=== PATIENT | male | born 1965 | race Caucasian/White ===

== ENCOUNTER 2016-08-23 10:19 | Emergency (ER) | payer BC ==
[2016-08-23] MEDS ORDERED: ASPIRIN (CHEWABLE) 81 MG TAB PO ONE (10:26)
[2016-08-23 10:47] VITALS: TEMP 97
--- NOTE | 2016-08-23 10:53 | RAD ---
EXAM DESCRIPTION: XR CHEST 2 VIEWS CLINICAL HISTORY: Chest pain COMPARISON: None TECHNIQUE: PA/lateral FINDINGS: Heart size is normal. The lungs are clear. No acute bony abnormality. IMPRESSION: No acute cardiopulmonary process. Electronically signed by: Srinivas Lacey MD 08/23/2016 10:52 AM CDT
--- NOTE | 2016-08-23 11:41 | ED.PDOC ---
History of Present Illness - General Chief Complaint: Chest Pain/VT Time Seen by Provider: 08/23/16 10:22 Source: patient Exam Limitations: no limitations - History of Present Illness Initial Comments: Patient presents with chest tightness for two hours. Sudden onset while driving to work this morning. Non-radiating. Intermittent. Had a previous episode about 6 months ago. No associated symptoms. Denies tobacco use. No hx of DM. No hx of first degree relatives with AMI but his mother had atrial fibrillation. Denies hyperlipidemia. Says he drinks at least two beers per day and had more than that this past weekend. No dyspnea. No other complatins. Timing/Duration: 1-3 hours Severity: mild Improving Factors: nothing Worsening Factors: nothing Associated Symptoms: denies symptoms Allergies/Adverse Reactions: Allergies NO KNOWN ALLERGY Allergy (Verified 02/21/16 13:53) Home Medications: Ambulatory Orders NK [NK] 02/21/16 Review of Systems - Review of Systems Constitutional: States: no symptoms reported EENTM: States: no symptoms reported Respiratory: States: no symptoms reported Cardiology: States: see HPI Gastrointestinal/Abdominal: States: no symptoms reported Genitourinary: States: no symptoms reported Musculoskeletal: States: no symptoms reported Skin: States: no symptoms reported Neurological: States: no symptoms reported Endocrine: States: no symptoms reported Hematologic/Lymphatic: States: no symptoms reported Past Medical History (General) - Patient Medical History Hx Stroke: No Hx Cardiac Disorders: No Hx Congestive Heart Failure: No Hx Hypertension: No Hx Diabetes: No Hx Cancer: No Hx Hepatitis C: No - Vaccination History Hx Tetanus, Diphtheria Vaccination: Yes Hx Influenza Vaccination: No Hx Pneumococcal Vaccination: No - Social History Hx Tobacco Use: No Hx Chewing Tobacco Use: No Hx Alcohol Use: Yes - Occasional Hx Substance Use: No Hx Substance Use Treatment: No Hx Depression: No Family Medical History - Family History Mother Hx Cardiac Disease: Yes - A fib Hx Family;Other: Takes blood thinners for a clotting problem Physical Exam - Physical Exam General Appearance: Alert Ears, Nose, Throat: normal ENT inspection Neck: non-tender, full range of motion, supple Respiratory: lungs clear Cardiovascular/Chest: regular rate, rhythm Gastrointestinal/Abdominal: normal bowel sounds, non tender, soft Back Exam: no CVA tenderness Extremity: normal range of motion, non-tender, normal inspection Neurologic: no motor/sensory deficits Skin Exam: normal color Lymphatic: no adenopathy Progress - Progress Progress: 08/23/16 15:17 Patient received ASA 324 mg po x one. Troponins x 3 negative. EKG read by me showed sinus bradycardia x 3. No ST changes nor T wave inversions. Laboratory Tests 08/23/16 08/23/16 08/23/16 10:35 10:35 10:35 WBC 4.8 RBC 4.43 L Hgb 14.3 Hct 41.9 L MCV 94.6 H MCH 32.2 H MCHC 34.1 RDW 13.2 Plt Count 231 MPV 6.9 L Absolute Neuts (auto) 2.40 Absolute Lymphs (auto) 1.60 Absolute Monos (auto) 0.60 Absolute Eos (auto) 0.10 Absolute Basos (auto) 0.00 Neutrophils % 50.7 Lymphocytes % 33.7 Monocytes % 12.1 H Eosinophils % 2.8 Basophils % 0.7 PT INR PTT (SP) Sodium 133 L Potassium 3.6 Chloride 99 L Carbon Dioxide 25 Anion Gap 12.6 BUN 11 Creatinine 0.79 BUN/Creatinine Ratio 13.9 Random Glucose 120 H Serum Osmolality 267.0 L Calcium 9.3 Total Bilirubin 1.1 H AST 39 ALT 32 Alkaline Phosphatase 49 Creatine Kinase 266 H* CK-MB (CK-2) 10.4 H* CK-MB (CK-2) % 3.91 H Troponin I 0.02 B-Natriuretic Peptide 44.7 Serum Total Protein 8.4 H Albumin 4.9 Globulin 3.5 Albumin/Globulin Ratio 1.4 Lipase 08/23/16 08/23/16 08/23/16 10:35 10:35 12:25 WBC RBC Hgb Hct MCV MCH MCHC RDW Plt Count MPV Absolute Neuts (auto) Absolute Lymphs (auto) Absolute Monos (auto) Absolute Eos (auto) Absolute Basos (auto) Neutrophils % Lymphocytes % Monocytes % Eosinophils % Basophils % PT 10.7 INR 0.950 PTT (SP) 28.7 Sodium Potassium Chloride Carbon Dioxide Anion Gap BUN Creatinine BUN/Creatinine Ratio Random Glucose Serum Osmolality Calcium Total Bilirubin AST ALT Alkaline Phosphatase Creatine Kinase 239 H* CK-MB (CK-2) 8.9 H* CK-MB (CK-2) % 3.72 H Troponin I 0.02 B-Natriuretic Peptide Serum Total Protein Albumin Globulin Albumin/Globulin Ratio Lipase 28 08/23/16 14:35 WBC RBC Hgb Hct MCV MCH MCHC RDW Plt Count MPV Absolute Neuts (auto) Absolute Lymphs (auto) Absolute Monos (auto) Absolute Eos (auto) Absolute Basos (auto) Neutrophils % Lymphocytes % Monocytes % Eosinophils % Basophils % PT INR PTT (SP) Sodium Potassium Chloride Carbon Dioxide Anion Gap BUN Creatinine BUN/Creatinine Ratio Random Glucose Serum Osmolality Calcium Total Bilirubin AST ALT Alkaline Phosphatase Creatine Kinase 231 H* CK-MB (CK-2) 8.6 H* CK-MB (CK-2) % 3.72 H Troponin I 0.02 B-Natriuretic Peptide Serum Total Protein Albumin Globulin Albumin/Globulin Ratio Lipase 08/23/16 15:19 Patient's sx resolved in the ER. Departure - Departure Clinical Impression: Chest tightness Disposition: Discharge to Home or Self Care Condition: Good Departure Forms: ED Discharge - Pt. Copy, Patient Portal Self Enrollment Diet: resume usual diet Activity: increase activity as tolerated Home Medications: Ambulatory Orders NK [NK] 02/21/16 Additional Instructions: Follow up with telemarketing agent. Return to ER for worsening sx.
[2016-08-23 15:31] VITALS: BP 125/81; O2SAT 100
== END 2016-08-23 15:28 | disposition home or self-care (01) ==
LOC: ER 10:19
DX: R07.89 Other chest pain (principal); R00.1 Bradycardia, unspecified; Z82.49 Family history of ischemic heart disease and other diseases of the circulatory system